=== PATIENT | male | born 1980 | race Two or more races ===

== ENCOUNTER 2023-11-04 17:49 | Emergency (ER) | payer SELFPAY ==
[~2023-11-04] VITALS: Ht 160 cm; Wt 68.0 kg
[2023-11-04 17:53] VITALS: BP 136/74; PULSE 86; RESP 18; TEMP 98.5; O2SAT 98
[2023-11-04] MEDS ORDERED: IBUPROFEN 600MG TABLET PO ONE (18:00)
== END 2023-11-04 18:33 | disposition home or self-care (01) ==
LOC: ER 17:49
DX: S83.92XA Sprain of unspecified site of left knee, initial encounter (principal); X58.XXXA Exposure to other specified factors, initial encounter; Y93.89 Activity, other specified; Y92.89 Other specified places as the place of occurrence of the external cause; Y99.8 Other external cause status
CPT/HCPCS: 99283